=== PATIENT | female | born 1945 | race Caucasian/White ===

== ENCOUNTER 2021-09-24 11:18 | Day surgery (SDC) | payer MEDICARE, MEDICAID ==
[2021-09-19 09:40] LABS: BASOPHILS # (AUTO) 0.1 X10'3 (0-0.2); BASOPHILS % (AUTO) 0.9 % (0-1); EOSINOPHILS # (AUTO) 0.2 X10'3 (0-0.9); EOSINOPHILS % (AUTO) 2.7 % (0-6); HEMATOCRIT 38.5 % (35.0-45.0); HEMOGLOBIN 12.8 g/dl (12.0-16.0); LYMPHOCYTES # (AUTO) 1.7 X10'3 (1.1-4.8); LYMPHOCYTES % (AUTO) 23.2 % (21-51); MEAN CORPUSCULAR HEMOGLOBIN 27.8 PG (27.0-31.0); MEAN CORPUSCULAR HGB CONC 33.2 g/dL (33.0-36.5); MEAN CORPUSCULAR VOLUME 83.7 FL (78-98); MEAN PLATELET VOLUME 9.2 FL (7.4-10.4); MONOCYTES # (AUTO) 0.5 X10'3 (0-0.9); MONOCYTES % (AUTO) 6.3 % (2-12); NEUTROPHILS # (AUTO) 4.9 X10'3 (1.8-7.7); NEUTROPHILS % (AUTO) 66.9 % (42-75); PLATELET COUNT 196 X10'3 (140-440); RED CELL DISTRIBUTION WIDTH 16.1 % (11.5-14.5); WHITE BLOOD COUNT 7.3 X10'3 (4.5-11.0)
[2021-09-19 09:54] LABS: APTT 26 SECONDS (22-32)
[2021-09-19 10:00] LABS: ANION GAP 7 (8-16); BLOOD UREA NITROGEN 24 MG/DL (7-18); BUN/CREATININE RATIO 20.9 (6.6-38.0); CALCIUM 8.7 MG/DL (8.5-10.1); CHLORIDE 105 MMOL/L (99-107); CREATININE 1.15 MG/DL (0.40-0.90); GLUCOSE 207 MG/DL (70-104); POTASSIUM 4.5 MMOL/L (3.5-5.1); SODIUM 139 MMOL/L (135-145); TOTAL CARBON DIOXIDE 27.5 MMOL/L (24-32); eGFR 46 ML/MIN
[~2021-09-24] VITALS: Ht 162.6 cm; Wt 96.2 kg
[2021-09-24] VITALS (8 sets, daily range): BP systolic 106–131; BP diastolic 52–75
[2021-09-24] MEDS ORDERED: LORazepam 0.5 MG tablet PO PRN (11:35)
[2021-09-24] MEDS ORDERED: normal saline 1,000 ML IV SCH (11:35)
[2021-09-24] MEDS ORDERED: diphenhydrAMINE 25mg capsule PO PRN (11:35)
[2021-09-24] MEDS ORDERED: LOSA25TA41 PO (13:06)
[2021-09-24] MEDS ORDERED: PANT-47 PO (13:06)
[2021-09-24] MEDS ORDERED: ALBU18HF2 INH (13:06)
[2021-09-24] MEDS ORDERED: FLUT1DIS20 INH (13:06)
[2021-09-24] MEDS ORDERED: ATOR40TA71 PO (13:06)
[2021-09-24] MEDS ORDERED: PEMB100V IVF (13:06)
[2021-09-24] MEDS ORDERED: ASPI81TA52 PO (13:06)
[2021-09-24] MEDS ORDERED: METO-539 PO (13:06)
[2021-09-24] MEDS ORDERED: DET2LAC PO (13:06)
[2021-09-24] MEDS ORDERED: METO-395 PO (13:06)
[2021-09-24] MEDS ORDERED: INSU100I31 SQ (13:06)
[2021-09-24] MEDS ORDERED: NITR0.4T48 SL (13:06)
[2021-09-24] MEDS ORDERED: FENO145T38 PO (13:06)
[2021-09-24] MEDS ORDERED: SENN-25 PO (13:06)
[2021-09-24] MEDS ORDERED: METF-1203 PO (13:06)
[2021-09-24] MEDS ORDERED: GABA600T13 PO (13:06)
[2021-09-24] MEDS ORDERED: EFF37.5XRC PO (13:06)
[2021-09-24] MEDS ORDERED: LIDOCAINE 1% w/preservative (10 MG/ML) inj. 10mL VIAL ONE (14:44)
[2021-09-24] MEDS ORDERED: verapamil 2.5 mg/ml inj IV ONE (14:44)
[2021-09-24] MEDS ORDERED: nitroGLYCERIN-Tridil 50MG/D5W 250 ML IV ONE (14:45)
[2021-09-24] MEDS ORDERED: midazolam 1 mg/ML 2ml injection ONE (14:45)
[2021-09-24] MEDS ORDERED: iohexol 350MG/ML 100ml bottle IV ONE ×2 (14:45→15:27)
[2021-09-24] MEDS ORDERED: heparin 1,000unit/ml 10ml vial 10 ML ONE (14:45)
[2021-09-24] MEDS ORDERED: fentaNYL/PF 50MCG/1 ML 2ML syringe ONE (14:45)
[2021-09-24] MEDS ORDERED: iohexol 350 MG/ML 50ML vial IV ONE ×2 (15:51→15:58)
[2021-09-24] MEDS ORDERED: HYDROcodone/acetaminophen 10/325mg tab PO PRN (16:45)
[2021-09-24] MEDS ORDERED: HYDROcodone/acetaminophen 5mg/325mg tablet PO PRN (16:45)
== END 2021-09-24 19:00 | disposition home or self-care (01) ==
LOC: SSTAY O 11:18
PROVIDERS: ATTEND Internal Medicine Interventional Cardiology
DX: R94.39 Abnormal result of other cardiovascular function study (principal); R07.89 Other chest pain; I25.118 Atherosclerotic heart disease of native coronary artery with other forms of angina pectoris; E78.5 Hyperlipidemia, unspecified; I10 Essential (primary) hypertension; F17.210 Nicotine dependence, cigarettes, uncomplicated; J44.9 Chronic obstructive pulmonary disease, unspecified; G47.33 Obstructive sleep apnea (adult) (pediatric); E66.9 Obesity, unspecified; Z68.36 Body mass index [BMI] 36.0-36.9, adult; I65.22 Occlusion and stenosis of left carotid artery; I48.0 Paroxysmal atrial fibrillation; E11.51 Type 2 diabetes mellitus with diabetic peripheral angiopathy without gangrene; I70.213 Atherosclerosis of native arteries of extremities with intermittent claudication, bilateral legs; Z85.820 Personal history of malignant melanoma of skin
CPT/HCPCS: 36415; 80048; 82948; 85025; 85610; 85730; 93005; 93458; 99152; 99153; C1769; C1894; J1644; J2250; J3010; J3490; J7030; Q0163; Q9967; A4620; A5120

== ENCOUNTER 2023-04-24 07:57 | Day surgery (SDC) | payer MEDICARE, MEDICAID ==
[2023-04-20 10:47] LABS: BASOPHILS # (AUTO) 0.1 X10'3 (0-0.2); BASOPHILS % (AUTO) 1.1 % (0-1); EOSINOPHILS # (AUTO) 0.4 X10'3 (0-0.9); EOSINOPHILS % (AUTO) 5.3 % (0-6); LYMPHOCYTES % (AUTO) 29.1 % (21-51); MEAN CORPUSCULAR HGB CONC 32.6 g/dL (33.0-36.5); MEAN CORPUSCULAR VOLUME 85.7 FL (78-98); MEAN PLATELET VOLUME 9.4 FL (7.4-10.4); MONOCYTES # (AUTO) 0.3 X10'3 (0-0.9); MONOCYTES % (AUTO) 4.7 % (2-12); NEUTROPHILS # (AUTO) 4.2 X10'3 (1.8-7.7); NEUTROPHILS % (AUTO) 59.8 % (42-75); PRE OP HEMATOCRIT 44.5 % (35.0-45.0); PRE OP HEMOGLOBIN 14.5 g/dL (12.0-16.0); PRE OP PLATELET COUNT 228 X10'3 (140-440)
[2023-04-20 10:59] LABS: ALBUMIN 3.1 G/DL (3.4-5.0); ALBUMIN/GLOBULIN RATIO 0.9 (1.1-1.5); ALKALINE PHOSPHATASE 59 IU/L (46-116); BLOOD UREA NITROGEN 25 MG/DL (7-18); BUN/CREATININE RATIO 23.6 (10.0-20.0); CALCIUM 9.2 MG/DL (8.5-10.1); CHLORIDE 103 MMOL/L (99-107); CREATININE 1.06 MG/DL (0.40-0.90); PRE OP ALT 16 U/L (30-65); PRE OP ANION GAP 8 (8-16); PRE OP AST 18 U/L (10-37); PRE OP BILIRUB, TOTAL 0.4 MG/DL (0.0-1.0); PRE OP POTASSIUM 4.2 MMOL/L (3.4-5.1); PRE OP SODIUM 137 MMOL/L (135-145); TOTAL CARBON DIOXIDE 26.3 MMOL/L (24-32); TOTAL PROTEIN 6.5 G/DL (6.4-8.2); eGFR 50 ML/MIN
[2023-04-20 11:02] LABS: PRE OP GLUCOSE 210 MG/DL (70-104)
[~2023-04-24] VITALS: Ht 165.1 cm; Wt 88.2 kg
[2023-04-24] VITALS (10 sets, daily range): BP systolic 128–164; BP diastolic 52–66; PULSE 75–84; RESP 14–24; TEMP 97.5; O2SAT 90–100
[~2023-04-24 07:57] MED LIST: ALBU18HF2 INH; ATOR40TA71 PO; DET2LAC PO; DOCUMENT DATE & TIME OF BETA-BLOCKER PO ONE; EFF37.5XRC PO; FENO145T38 PO; FLUT1DIS20 INH; GABA600T13 PO; INSU100I31 SQ; METF-1203 PO; METO-395 PO; OMEP20CA16 PO; OXYGEN NASALCANN; UMEC62.5 INH; famotidine 20mg tablet PO ONE; ringers solution, lacted 1,000 ML IV SCH
[2023-04-24] MEDS ORDERED: epiNEPHrine 1 MG/ML 1 ml ampule **BRONCH ONLY ONE (09:25)
[2023-04-24] MEDS ORDERED: LIDOCAINE 4% (40MG/ML) topical solution 50ml **BRONCH ONLY ONE (09:25)
[2023-04-24] MEDS ORDERED: sevoflurane 250ml liquid IH ONE (10:05)
[2023-04-24] MEDS ORDERED: hydrALAZINE 20mg/ml inj. IV PRN (10:10)
[2023-04-24] MEDS ORDERED: labetalol 20mg/4ml (5mg/ml) syringe IV PRN (10:10)
[2023-04-24] MEDS ORDERED: morphine 4 MG/ML inj SYRINge IV PRN (10:10)
[2023-04-24] MEDS ORDERED: ondansetron/PF 4mg/2ml inj IV PRN (10:10)
[2023-04-24] MEDS ORDERED: proCHLORperazine 10 MG/2 ml inj IV PRN (10:10)
[2023-04-24] MEDS ORDERED: HYDROmorphone/PF 0.2 MG/ML SYRINGE IV PRN ×2 (10:10)
[2023-04-24] MEDS ORDERED: acetaminophen 1,000mg/100ml IV 100 ML IV PRN (10:10)
[2023-04-24] MEDS ORDERED: fentaNYL/PF 50MCG/1 ML 2ML syringe ONE (10:10)
[2023-04-24] MEDS ORDERED: ringers solution, lacted 1,000 ML IV SCH (10:10)
[2023-04-24] MEDS ORDERED: morphine 2 MG/ML inj. syringe IV PRN (10:10)
[2023-04-24] MEDS ORDERED: midazolam 1 mg/ML 2ml injection ONE (10:11)
[2023-04-24] MEDS ORDERED: ondansetron/PF 4mg/2ml inj ONE (10:38)
[2023-04-24] MEDS ORDERED: rocuronium 10mg/ml inj IV ONE (10:38)
[2023-04-24] MEDS ORDERED: LIDOcaine 2% (20mg/ml) 5ml vial ONE (10:38)
[2023-04-24] MEDS ORDERED: dexamethasone sod phosphate 4mg/ml inj. ONE (10:38)
[2023-04-24] MEDS ORDERED: propofol inj 20 ML IV ONE (10:38)
[2023-04-24] MEDS ORDERED: glycopyrrolate 0.2mg/ml inj ONE (11:06)
[2023-04-24] MEDS ORDERED: neostigmine methylsulfate 1 MG/ML 10ml vial ONE (11:06)
--- NOTE | 2023-04-24 11:22 | NUR ---
Received from OR via [facility], accompanied by Anesthesiologist and report given by Anesthesiologist. PATIENT WAKING UP, NO S/S OF PAIN, V/S WNL, PIV 20G RIGHT AC. NO S/S OF DISCOMFORT OR DISTRESS AT THIS TIME. WILL KEEP MONITORING. Addendum: 04/24/23 at 1142 by Dallas Rosales RN Amended: Links added.
--- NOTE | 2023-04-24 12:32 | NUR ---
ALL DISCHARGE CRITERIA HAS BEEN MET. VSS, PAIN AT A TOLERABLE LEVEL,ABLE TO SAFELY AMBULATE AND TRANSFER SELF. IV TAKEN OUT WITHOUT ANY COMPLICATIONS. ALL DISCHARGE INSTRUCTIONS COVERED WITH PATIENT AND ALL QUESTIONS ANSWERED. PATIENT TAKEN OUT VIA WHEELCHAIR WITH ALL BELONGINGS TO PERSONAL VEHICLE WHERE FAMILY DROVE PATIENT HOME. Addendum: 04/24/23 at 1238 by Dallas Rosales RN Amended: Links added.
== END 2023-04-24 12:32 | disposition home or self-care (01) ==
LOC: PAS 07:57
PROVIDERS: ATTEND Internal Medicine Critical Care Medicine
DX: R91.8 Other nonspecific abnormal finding of lung field (principal); J43.9 Emphysema, unspecified; I25.10 Atherosclerotic heart disease of native coronary artery without angina pectoris; G47.33 Obstructive sleep apnea (adult) (pediatric); I10 Essential (primary) hypertension; I25.2 Old myocardial infarction; G43.909 Migraine, unspecified, not intractable, without status migrainosus; E11.42 Type 2 diabetes mellitus with diabetic polyneuropathy; E78.5 Hyperlipidemia, unspecified; F17.210 Nicotine dependence, cigarettes, uncomplicated; Z88.0 Allergy status to penicillin; Z79.899 Other long term (current) drug therapy; Z79.84 Long term (current) use of oral hypoglycemic drugs; Z95.1 Presence of aortocoronary bypass graft; Z90.710 Acquired absence of both cervix and uterus; Z98.890 Other specified postprocedural states; Z95.5 Presence of coronary angioplasty implant and graft; Z86.14 Personal history of Methicillin resistant Staphylococcus aureus infection; Z85.44 Personal history of malignant neoplasm of other female genital organs
CPT/HCPCS: 31623; 31624; 31628; 31629; 31653; 36415; 71045; 71250; 80053; 82948; 85025; 87015; 87070; 87116; 87206; 94760; J1100; J2250; J2405; J2704; J2710; J3010; J3490; J7120; Z7506; Z7508; Z7512; 31622; 31625; 31626; 31627; 31654; A4615; A4618; J0171